=== PATIENT | female | born 1950 | race Two or more races ===

== ENCOUNTER 2017-08-14 13:03 | Outpatient (CLI) | payer OTHER | END 2017-08-14 13:10 | disposition home or self-care (01) | LOC: MAMO-SONO 13:03 | DX: Z12.31 Encounter for screening mammogram for malignant neoplasm of breast (principal); Z87.898 Personal history of other specified conditions; N63.20 Unspecified lump in the left breast, unspecified quadrant ==

== ENCOUNTER → 2017-08-16 | Outpatient (CLI) | payer OTHER | END | disposition home or self-care (01) | LOC: NUCLEAR 10:00 | DX: M81.0 Age-related osteoporosis without current pathological fracture (principal) ==

== ENCOUNTER 2017-10-11 10:48 | Outpatient (CLI) | payer OTHER | END 2017-10-11 10:51 | disposition home or self-care (01) | LOC: RAD 10:48 | DX: I10 Essential (primary) hypertension (principal) ==

== ENCOUNTER 2017-12-04 16:39 | Outpatient (CLI) | payer OTHER | END 2017-12-04 16:40 | disposition home or self-care (01) | LOC: RAD 16:39 | DX: M12.88 Other specific arthropathies, not elsewhere classified, other specified site (principal); M19.90 Unspecified osteoarthritis, unspecified site ==

== ENCOUNTER → 2018-07-25 | Outpatient (CLI) | payer OTHER | END | disposition home or self-care (01) | LOC: RAD 501 11:43 | DX: M77.42 Metatarsalgia, left foot (principal) ==

== ENCOUNTER 2018-07-26 08:45 | Outpatient (CLI) | payer OTHER | END 2018-07-29 12:48 | disposition home or self-care (01) | LOC: LAB 08:45 | DX: E55.9 Vitamin D deficiency, unspecified (principal); M85.9 Disorder of bone density and structure, unspecified; E88.89 Other specified metabolic disorders; M81.8 Other osteoporosis without current pathological fracture; E56.1 Deficiency of vitamin K; E21.2 Other hyperparathyroidism ==

== ENCOUNTER → 2018-07-29 | Outpatient (CLI) | payer OTHER | END | disposition home or self-care (01) | LOC: RAD 12:16 | DX: S99.102A Unspecified physeal fracture of left metatarsal, initial encounter for closed fracture (principal) ==

== ENCOUNTER 2018-08-21 10:53 | Outpatient (CLI) | payer OTHER | END 2018-08-21 11:00 | disposition home or self-care (01) | LOC: RAD 501 10:53 | DX: S92.352A Displaced fracture of fifth metatarsal bone, left foot, initial encounter for closed fracture (principal) ==

== ENCOUNTER 2018-10-10 09:19 | Outpatient (CLI) | payer OTHER | END 2018-10-10 09:40 | disposition home or self-care (01) | LOC: MAMO-SONO 09:19 | DX: Z12.31 Encounter for screening mammogram for malignant neoplasm of breast (principal); Z87.898 Personal history of other specified conditions; N60.11 Diffuse cystic mastopathy of right breast; N60.12 Diffuse cystic mastopathy of left breast ==

== ENCOUNTER → 2018-10-10 15:11 | Outpatient (CLI) | payer OTHER | END | disposition home or self-care (01) | LOC: LAB 08:48 | DX: I10 Essential (primary) hypertension (principal); E03.8 Other specified hypothyroidism; Z12.11 Encounter for screening for malignant neoplasm of colon; N30.00 Acute cystitis without hematuria; E83.51 Hypocalcemia; B95.1 Streptococcus, group B, as the cause of diseases classified elsewhere; E78.49 Other hyperlipidemia ==

== ENCOUNTER 2018-10-14 13:52 | Outpatient (CLI) | payer OTHER | END 2018-10-14 14:10 | disposition home or self-care (01) | LOC: NUCLEAR 13:52 | DX: M81.0 Age-related osteoporosis without current pathological fracture (principal) ==

== ENCOUNTER → 2018-11-25 | Outpatient (CLI) | payer OTHER | END | disposition home or self-care (01) | LOC: RAD 10:10 | DX: M75.31 Calcific tendinitis of right shoulder (principal); M75.41 Impingement syndrome of right shoulder; M19.072 Primary osteoarthritis, left ankle and foot ==

== ENCOUNTER 2019-06-01 15:05 | Outpatient (CLI) | payer OTHER | END 2019-06-01 15:08 | disposition home or self-care (01) | LOC: RAD 15:05 | DX: M54.6 Pain in thoracic spine (principal) ==

== ENCOUNTER 2019-06-25 15:52 | Outpatient (CLI) | payer OTHER | END 2019-06-25 16:07 | disposition home or self-care (01) | LOC: TOM 15:52 | DX: R42 Dizziness and giddiness (principal); Z86.73 Personal history of transient ischemic attack (TIA), and cerebral infarction without residual deficits ==

== ENCOUNTER 2019-09-26 10:27 | Outpatient (CLI) | payer OTHER | END 2019-09-26 10:33 | disposition home or self-care (01) | LOC: LAB 10:27 | DX: D50.0 Iron deficiency anemia secondary to blood loss (chronic) (principal); D64.89 Other specified anemias; E55.9 Vitamin D deficiency, unspecified; E03.8 Other specified hypothyroidism; R79.89 Other specified abnormal findings of blood chemistry ==

== ENCOUNTER 2019-11-10 10:18 | Outpatient (CLI) | payer OTHER | END 2019-11-10 10:24 | disposition home or self-care (01) | LOC: LAB 10:18 | PROVIDERS: ATTEND Internal Medicine Cardiovascular Disease | DX: R05 Cough (principal); R06.2 Wheezing; I10 Essential (primary) hypertension; E11.9 Type 2 diabetes mellitus without complications; E03.8 Other specified hypothyroidism; E78.2 Mixed hyperlipidemia; R50.9 Fever, unspecified; Z12.11 Encounter for screening for malignant neoplasm of colon; E55.9 Vitamin D deficiency, unspecified; Z20.828 Contact with and (suspected) exposure to other viral communicable diseases ==

== ENCOUNTER → 2019-11-13 | Outpatient (CLI) | payer OTHER | END | disposition home or self-care (01) | LOC: MAMO-SONO 10:35 | PROVIDERS: ATTEND Specialist | DX: Z12.31 Encounter for screening mammogram for malignant neoplasm of breast (principal); N60.11 Diffuse cystic mastopathy of right breast; N60.12 Diffuse cystic mastopathy of left breast ==

== ENCOUNTER 2019-11-17 14:03 | Outpatient (CLI) | payer OTHER | END 2019-11-17 14:14 | disposition home or self-care (01) | LOC: NUCLEAR 14:03 | PROVIDERS: ATTEND Orthopaedic Surgery | DX: M81.0 Age-related osteoporosis without current pathological fracture (principal) ==

== ENCOUNTER → 2020-01-12 09:16 | Outpatient (CLI) | payer OTHER | END | disposition home or self-care (01) | LOC: LAB 09:16 | PROVIDERS: ATTEND Psychiatry & Neurology Clinical Neurophysiology | DX: I63.30 Cerebral infarction due to thrombosis of unspecified cerebral artery (principal); Z20.828 Contact with and (suspected) exposure to other viral communicable diseases ==

== ENCOUNTER 2020-01-26 11:20 | Outpatient (CLI) | payer OTHER | END 2020-01-26 11:28 | disposition home or self-care (01) | LOC: RAD 11:20 | PROVIDERS: ATTEND Psychiatry & Neurology Clinical Neurophysiology | DX: M70.61 Trochanteric bursitis, right hip (principal) ==

== ENCOUNTER 2020-04-09 16:33 | Inpatient (IN) | payer OTHER ==
[~2020-04-09] VITALS: Ht 152.4 cm; Wt 49.0 kg
[2020-04-11] MEDS ORDERED: PERCOCET 5-3251 EACH PO (10:36)
[2020-04-11] MEDS ORDERED: CELECOXIB200 MG PO (10:38)
== END 2020-04-11 20:02 | disposition home or self-care (01) | DRG 494 ==
LOC: ER 16:33 → SURG 21:24 → SURH 21:24 → SURG 04-10 04:59 → SURH 04-10 12:41 → SURG 04-10 12:59 → SURH 04-10 13:18
PROVIDERS: ADMIT Orthopaedic Surgery; ATTEND Orthopaedic Surgery
PROC: 0MQR0ZZ Repair Left Ankle Bursa and Ligament, Open Approach (ICD-10-PCS; 2020-04-11)
PROC: 0QSH04Z Reposition Left Tibia with Internal Fixation Device, Open Approach (ICD-10-PCS; principal; 2020-04-11 10:00)
DX: S82.852A Displaced trimalleolar fracture of left lower leg, initial encounter for closed fracture (principal); Z20.828 Contact with and (suspected) exposure to other viral communicable diseases; S93.492A Sprain of other ligament of left ankle, initial encounter; X58.XXXA Exposure to other specified factors, initial encounter

== ENCOUNTER 2020-04-25 10:43 | Outpatient (CLI) | payer OTHER ==
[~2020-04-25 10:43] MED LIST: CELECOXIB200 MG PO; PERCOCET 5-3251 EACH PO
== END 2020-04-25 10:51 | disposition home or self-care (01) ==
LOC: RAD 10:43
PROVIDERS: ATTEND Orthopaedic Surgery
DX: S82.852D Displaced trimalleolar fracture of left lower leg, subsequent encounter for closed fracture with routine healing (principal)

== ENCOUNTER 2020-05-10 12:15 | Outpatient (CLI) | payer OTHER | END 2020-05-10 12:22 | disposition home or self-care (01) | LOC: TOM 12:15 | PROVIDERS: ATTEND Psychiatry & Neurology Clinical Neurophysiology | DX: S06.0X0A Concussion without loss of consciousness, initial encounter (principal) ==

== ENCOUNTER 2020-05-17 11:38 | Outpatient (CLI) | payer OTHER | END 2020-05-17 11:41 | disposition home or self-care (01) | LOC: RAD 11:38 | PROVIDERS: ATTEND Orthopaedic Surgery | DX: S82.852D Displaced trimalleolar fracture of left lower leg, subsequent encounter for closed fracture with routine healing (principal) ==

== ENCOUNTER → 2020-08-31 09:29 | Outpatient (CLI) | payer OTHER | END | disposition home or self-care (01) | LOC: LAB 09:29 | PROVIDERS: ATTEND Internal Medicine Cardiovascular Disease | DX: I10 Essential (primary) hypertension (principal); E03.8 Other specified hypothyroidism; E11.9 Type 2 diabetes mellitus without complications; E78.2 Mixed hyperlipidemia; Z12.11 Encounter for screening for malignant neoplasm of colon; E55.9 Vitamin D deficiency, unspecified ==

== ENCOUNTER → 2020-09-01 13:44 | Outpatient (CLI) | payer OTHER | END | disposition home or self-care (01) | LOC: LAB 13:44 | PROVIDERS: ATTEND Internal Medicine Cardiovascular Disease | DX: I10 Essential (primary) hypertension (principal); E11.9 Type 2 diabetes mellitus without complications; E03.8 Other specified hypothyroidism; E78.2 Mixed hyperlipidemia; Z12.11 Encounter for screening for malignant neoplasm of colon; E55.9 Vitamin D deficiency, unspecified ==

== ENCOUNTER → 2021-01-05 10:23 | Outpatient (CLI) | payer OTHER | END | disposition home or self-care (01) | LOC: LAB 10:23 | PROVIDERS: ATTEND Internal Medicine Cardiovascular Disease | DX: I10 Essential (primary) hypertension (principal); E11.9 Type 2 diabetes mellitus without complications; E03.8 Other specified hypothyroidism; E78.2 Mixed hyperlipidemia; Z12.11 Encounter for screening for malignant neoplasm of colon; E55.9 Vitamin D deficiency, unspecified; N80.8 Other endometriosis; N63.11 Unspecified lump in the right breast, upper outer quadrant; R10.84 Generalized abdominal pain; N39.0 Urinary tract infection, site not specified ==

== ENCOUNTER 2021-02-01 11:33 | Outpatient (CLI) | payer OTHER | END 2021-02-01 11:48 | disposition home or self-care (01) | LOC: MAMO-SONO 11:33 | PROVIDERS: ATTEND Specialist | DX: N64.89 Other specified disorders of breast (principal); Z12.31 Encounter for screening mammogram for malignant neoplasm of breast; S82.852D Displaced trimalleolar fracture of left lower leg, subsequent encounter for closed fracture with routine healing; M54.2 Cervicalgia ==

== ENCOUNTER 2021-02-16 10:03 | Outpatient (CLI) | payer OTHER | END 2021-02-16 10:15 | disposition home or self-care (01) | LOC: MRI 10:03 | PROVIDERS: ATTEND Orthopaedic Surgery | DX: M50.223 Other cervical disc displacement at C6-C7 level (principal) | CPT/HCPCS: 72156; A9575; 72142 ==

== ENCOUNTER → 2021-02-16 11:17 | Outpatient (CLI) | payer OTHER | END | disposition home or self-care (01) | LOC: LAB 11:17 | PROVIDERS: ATTEND Radiology Diagnostic Radiology | DX: M54.2 Cervicalgia (principal) ==

== ENCOUNTER 2021-03-02 09:00 | Outpatient (CLI) | payer OTHER | END 2021-03-02 09:30 | disposition home or self-care (01) | LOC: PPH VACUNA 09:00 | PROVIDERS: ATTEND Emergency Medicine Pediatric Emergency Medicine | DX: Z23 Encounter for immunization (principal) ==

== ENCOUNTER 2021-05-11 11:43 | Emergency (ER) | payer OTHER ==
[~2021-05-11] VITALS: Ht 149.9 cm; Wt 52.2 kg
[2021-05-11] MEDS ORDERED: MULTIVITAMINS1 EAC4 (11:51)
[2021-05-11] MEDS ORDERED: CELEBREX100 MG PO (16:30)
[2021-05-11] MEDS ORDERED: ORPHENADRINE C100 MG PO (16:30)
== END 2021-05-11 16:38 | disposition home or self-care (01) ==
LOC: ER 11:43
DX: S00.83XA Contusion of other part of head, initial encounter (principal); S13.9XXA Sprain of joints and ligaments of unspecified parts of neck, initial encounter; W18.39XA Other fall on same level, initial encounter; Y93.89 Activity, other specified; Y92.59 Other trade areas as the place of occurrence of the external cause; Y99.8 Other external cause status

== ENCOUNTER 2021-06-29 12:35 | Outpatient (CLI) | payer OTHER ==
[~2021-06-29 12:35] MED LIST changes: +CELEBREX100 MG PO; +MULTIVITAMINS1 EAC4; +ORPHENADRINE C100 MG PO
== END 2021-06-29 12:59 | disposition home or self-care (01) ==
LOC: LAB 12:35
PROVIDERS: ATTEND Orthopaedic Surgery
DX: E56.1 Deficiency of vitamin K (principal)

== ENCOUNTER 2021-06-29 13:06 | Outpatient (CLI) | payer OTHER | END 2021-06-29 13:19 | disposition home or self-care (01) | LOC: RAD 13:06 | PROVIDERS: ATTEND Orthopaedic Surgery | DX: M25.572 Pain in left ankle and joints of left foot (principal) ==

== ENCOUNTER 2021-10-25 07:19 | Outpatient (CLI) | payer OTHER | END 2021-10-25 07:20 | disposition home or self-care (01) | LOC: LAB 07:19 | PROVIDERS: ATTEND Radiology Diagnostic Radiology | DX: R10.33 Periumbilical pain (principal) ==

== ENCOUNTER 2021-10-25 07:55 | Outpatient (CLI) | payer OTHER | END 2021-10-25 08:09 | disposition home or self-care (01) | LOC: TOM 07:55 | PROVIDERS: ATTEND Internal Medicine Gastroenterology | DX: R10.33 Periumbilical pain (principal); R63.4 Abnormal weight loss | CPT/HCPCS: 74177; Q9965 ==

== ENCOUNTER 2022-01-22 15:33 | Outpatient (CLI) | payer OTHER | END 2022-01-22 15:39 | disposition home or self-care (01) | LOC: RAD 15:33 | PROVIDERS: ATTEND Internal Medicine Cardiovascular Disease | DX: J44.9 Chronic obstructive pulmonary disease, unspecified (principal); J11.1 Influenza due to unidentified influenza virus with other respiratory manifestations ==

== ENCOUNTER → 2022-03-14 | Outpatient (CLI) | payer OTHER | END | disposition home or self-care (01) | LOC: NUCLEAR 11:12 | PROVIDERS: ATTEND Specialist | DX: M81.0 Age-related osteoporosis without current pathological fracture (principal); Z88.0 Allergy status to penicillin ==

== ENCOUNTER 2022-04-02 16:42 | Outpatient (CLI) | payer OTHER | END 2022-04-02 16:52 | disposition home or self-care (01) | LOC: LAB 16:42 | PROVIDERS: ATTEND Orthopaedic Surgery | DX: E55.9 Vitamin D deficiency, unspecified (principal); M85.9 Disorder of bone density and structure, unspecified; E56.1 Deficiency of vitamin K ==

== ENCOUNTER 2022-05-15 08:12 | Outpatient (CLI) | payer OTHER | END 2022-05-15 08:25 | disposition home or self-care (01) | LOC: LAB 08:12 | PROVIDERS: ATTEND Internal Medicine Gastroenterology | DX: E78.1 Pure hyperglyceridemia (principal); E03.9 Hypothyroidism, unspecified; E55.9 Vitamin D deficiency, unspecified ==

== ENCOUNTER 2023-01-09 14:36 | Outpatient (CLI) | payer OTHER ==
[2023-01-09 15:24] LABS: HEMATOCRIT 37.6 % (36.0-45.00); HEMOGLOBIN 12.6 g/dL (12.0-15.00); MEAN CELL VOLUME 84.4 fL (80.00-100.00); MEAN CORPUSCULAR HEMOGLOBIN 28.3 pg (27.00-32.0); MEAN CORPUSCULAR HGB CONC 33.5 g/dl (32.0-36.0); PLATELET COUNT 313 K/uL (150-450); RED BLOOD COUNT 4.45 M/uL (4.00-6.00); RED CELL DISTRIBUTION WIDTH 13.8 % (11.5-14.5)
== END 2023-01-09 14:39 | disposition home or self-care (01) ==
LOC: LAB 14:36
PROVIDERS: ATTEND Internal Medicine Cardiovascular Disease
DX: J11.1 Influenza due to unidentified influenza virus with other respiratory manifestations (principal); A49.3 Mycoplasma infection, unspecified site; Z20.822 Contact with and (suspected) exposure to COVID-19; Z88.0 Allergy status to penicillin

== ENCOUNTER 2023-03-06 10:16 | Outpatient (CLI) | payer OTHER | END 2023-03-06 10:27 | disposition home or self-care (01) | LOC: MAMO-SONO 10:16 | PROVIDERS: ATTEND Specialist | DX: N60.11 Diffuse cystic mastopathy of right breast (principal); N60.12 Diffuse cystic mastopathy of left breast; Z12.31 Encounter for screening mammogram for malignant neoplasm of breast ==

== ENCOUNTER 2024-02-24 15:45 | Outpatient (CLI) | payer OTHER | END 2024-02-24 15:50 | disposition home or self-care (01) | LOC: RAD 15:45 | PROVIDERS: ATTEND Physical Medicine & Rehabilitation | DX: M25.511 Pain in right shoulder (principal) ==

== ENCOUNTER 2024-02-28 09:26 | Outpatient (CLI) | payer OTHER | END 2024-02-28 09:29 | disposition home or self-care (01) | LOC: SONOGRAMA 09:26 | PROVIDERS: ATTEND Physical Medicine & Rehabilitation | DX: M25.511 Pain in right shoulder (principal) ==

== ENCOUNTER 2024-03-09 13:26 | Outpatient (CLI) | payer OTHER | END 2024-03-09 13:30 | disposition home or self-care (01) | LOC: MAMO-SONO 13:26 | PROVIDERS: ATTEND Specialist | DX: N60.11 Diffuse cystic mastopathy of right breast (principal); N60.12 Diffuse cystic mastopathy of left breast; Z12.31 Encounter for screening mammogram for malignant neoplasm of breast ==

== ENCOUNTER 2024-03-26 13:16 | Outpatient (CLI) | payer OTHER | END 2024-03-26 13:17 | disposition home or self-care (01) | LOC: NUCLEAR 13:16 | PROVIDERS: ATTEND Specialist | DX: M81.0 Age-related osteoporosis without current pathological fracture (principal) ==

== ENCOUNTER 2024-10-19 08:10 | Emergency (ER) | payer OTHER ==
[~2024-10-19] VITALS: Ht 152.4 cm; Wt 47.6 kg
[2024-10-19] MEDS ORDERED: ORPHENADRINE CITRATE 30 MG/ML AMPUL IM ONE (10:00)
[2024-10-19] MEDS ORDERED: KETOROLAC TROMETHAMINE 60 MG VIAL IM ONE (10:00)
[2024-10-19] MEDS ORDERED: NORFLEX100MG PO (11:22)
== END 2024-10-19 11:58 | disposition home or self-care (01) ==
LOC: ER 09:22
DX: M62.838 Other muscle spasm (principal); Z88.6 Allergy status to analgesic agent
CPT/HCPCS: 70450; 72125; 96372; 99284; J1885; J2360

== ENCOUNTER 2025-03-08 10:39 | Outpatient (CLI) | payer OTHER ==
[~2025-03-08 10:39] MED LIST changes: +NORFLEX100MG PO
== END 2025-03-08 10:43 | disposition home or self-care (01) ==
LOC: RAD 10:39
PROVIDERS: ATTEND Internal Medicine Cardiovascular Disease
DX: N95.0 Postmenopausal bleeding (principal); I10 Essential (primary) hypertension

== ENCOUNTER 2025-03-11 11:05 | Outpatient (CLI) | payer OTHER | END 2025-03-11 11:06 | disposition home or self-care (01) | LOC: MAMO-SONO 11:05 | PROVIDERS: ATTEND Specialist | DX: N60.11 Diffuse cystic mastopathy of right breast (principal); N60.12 Diffuse cystic mastopathy of left breast; Z12.31 Encounter for screening mammogram for malignant neoplasm of breast ==

== ENCOUNTER → 2025-03-12 10:44 | Outpatient (CLI) | payer OTHER | END | disposition home or self-care (01) | LOC: TOM 10:44 | PROVIDERS: ATTEND Psychiatry & Neurology Clinical Neurophysiology | DX: I67.2 Cerebral atherosclerosis (principal) ==